=== PATIENT | female | born 1990 | race Caucasian/White ===

== ENCOUNTER 2018-02-09 16:05 | Emergency (ER) | payer OTHER ==
[~2018-02-09] VITALS: Ht 165.1 cm; Wt 70.0 kg
[~2018-02-09 16:05] MED LIST: IBUP-1986 PO; METH-360 PO
[2018-02-09] MEDS ORDERED: normal saline 1000ML IV soln IVB ONE (20:45)
[2018-02-09] MEDS ORDERED: ketorolac trometh. 30mg/ml inj. IV ONE (20:50)
[2018-02-09 21:10] LABS: BASOPHILS % (AUTO) 0.2 % (0-1); EOSINOPHILS # (AUTO) 0.1 X10'3 (0-0.9); EOSINOPHILS % (AUTO) 0.8 % (0-6); HEMATOCRIT 47.5 % (35.0-45.0); HEMOGLOBIN 15.8 g/dl (12.0-16.0); LYMPHOCYTES # (AUTO) 0.8 X10'3 (1.1-4.8); LYMPHOCYTES % (AUTO) 10.7 % (21-51); MEAN CORPUSCULAR HEMOGLOBIN 31.4 PG (27.0-31.0); MEAN CORPUSCULAR HGB CONC 33.3 % (33.0-36.5); MEAN CORPUSCULAR VOLUME 94.3 FL (78-98); MEAN PLATELET VOLUME 8.9 FL (7.4-10.4); MONOCYTES # (AUTO) 0.8 X10'3 (0-0.9); MONOCYTES % (AUTO) 11.5 % (2-12); NEUTROPHILS # (AUTO) 5.6 X10'3 (1.8-7.7); NEUTROPHILS % (AUTO) 76.8 % (42-75); PLATELET COUNT 227 X10'3 (140-440); RED BLOOD COUNT 5.03 X10'6 (4.20-5.60); RED CELL DISTRIBUTION WIDTH 13.8 % (11.5-14.5); WHITE BLOOD COUNT 7.3 X10'3 (4.5-11.0)
[2018-02-09] MEDS ORDERED: morphine 4 MG/ML inj SYRINge IV PRN (21:25)
[2018-02-09] MEDS ORDERED: morphine 4 MG/ML inj SYRINge IV ONE (21:25)
[2018-02-09] MEDS ORDERED: LORazepam 2 mg/ml vial IV ONE (21:25)
[2018-02-09 21:43] LABS: ALANINE AMINOTRANSFERASE 39 U/L (12-78); ALBUMIN/GLOBULIN RATIO 1.1 (1.1-1.5); ALKALINE PHOSPHATASE 65 IU/L (46-116); ANION GAP 13 (8-16); ASPARTATE AMINO TRANSFERASE 29 U/L (10-37); BILIRUBIN,TOTAL 0.3 MG/DL (0.1-1.0); BLOOD UREA NITROGEN 11 MG/DL (7-18); BUN/CREATININE RATIO 12.2 (6.6-38.0); C-REACTIVE PROTEIN 0.44 MG/DL (0.0-0.5); CALCIUM 9.1 MG/DL (8.5-10.1); CHLORIDE 99 MMOL/L (99-107); GLUCOSE 86 MG/DL (70-104); POTASSIUM 3.7 MMOL/L (3.5-5.1); SODIUM 136 MMOL/L (135-145); TOTAL PROTEIN 7.7 G/DL (6.4-8.2); eGFR 75 ML/MIN
[2018-02-09 21:46] LABS: ETHANOL < 0.010 GM/DL (0.0-0.010)
[2018-02-09 21:54] LABS: URINE AMPHETAMINE SCREEN NEGATIVE (Neg); URINE BARBITUATE SCREEN NEGATIVE (Neg); URINE BENZODIAZEPINES SCREEN NEGATIVE (Neg); URINE CANNABINOID SCREEN POSITIVE (Neg); URINE COCAINE SCREEN NEGATIVE (Neg); URINE METHADONE SCREEN NEGATIVE (Neg); URINE OPIATE SCREEN NEGATIVE (Neg); URINE PHENCYCLIDINE SCREEN NEGATIVE (Neg)
[2018-02-09 21:55] LABS: CLARITY,URINE CLEAR (Clear); COLOR,URINE YELLOW (Yellow); GLUCOSE, URINE NEGATIVE (Neg); KETONES,URINE NEGATIVE (Neg); LEUKOCYTE ESTERASE ,URINE NEGATIVE (Neg); NITRITES, URINE NEGATIVE (Neg); OCCULT BLOOD,URINE NEGATIVE (Neg); PROTEIN,URINE NEGATIVE (Neg); UROBILINOGEN,URINE 0.2 E.U/dL (0.2-1.0)
[2018-02-09 21:58] LABS: UA COLLECTION TYPE CLN CATCH MIDSTREAM
[2018-02-09] MEDS ORDERED: iohexol 350MG/ML 100ml bottle IV ONE (23:08)
[2018-02-10] MEDS ORDERED: NAPR-56 PO (01:28)
[2018-02-10 01:46] VITALS: BP 109/47
== END 2018-02-10 01:49 | disposition home or self-care (01) ==
LOC: ER 16:07
DX: J32.9 Chronic sinusitis, unspecified (principal); G89.29 Other chronic pain; R20.0 Anesthesia of skin; R42 Dizziness and giddiness; R51 Headache; Z91.040 Latex allergy status; Z88.5 Allergy status to narcotic agent
CPT/HCPCS: 36415; 70496; 80053; 80305; 80320; 81003; 83605; 83735; 84443; 85025; 85651; 86140; 93005; 96361; 96374; 96375; 99284; J1885; J2060; J2270; J7030; Q9967

== ENCOUNTER 2019-01-18 13:04 | Emergency (ER) | payer OTHER ==
[~2019-01-18] VITALS: Ht 167.6 cm; Wt 68.2 kg
[~2019-01-18 13:04] MED LIST changes: +LIDOcaine 1% w/EPI 1:100,000 30ml vial (MDV) ONE
[2019-01-18 13:21] VITALS: BP 124/66
== END 2019-01-18 15:30 | disposition home or self-care (01) ==
LOC: ER 13:05
DX: S01.111A Laceration without foreign body of right eyelid and periocular area, initial encounter (principal); G89.29 Other chronic pain; Z88.6 Allergy status to analgesic agent; Z91.040 Latex allergy status; Z79.899 Other long term (current) drug therapy; W22.8XXA Striking against or struck by other objects, initial encounter; Y93.89 Activity, other specified; Y92.89 Other specified places as the place of occurrence of the external cause; Y99.8 Other external cause status
CPT/HCPCS: 12011; 99283

== ENCOUNTER 2020-02-18 12:16 | Emergency (ER) | payer BC, OTHER ==
[~2020-02-18] VITALS: Ht 167.6 cm; Wt 69.1 kg
[~2020-02-18 12:16] MED LIST changes: -LIDOcaine 1% w/EPI 1:100,000 30ml vial (MDV) ONE
[2020-02-18 12:21] VITALS: BP 154/105
[2020-02-18] MEDS ORDERED: cyclobenzaprine 10mg tablet PO ONE (13:25)
[2020-02-18] MEDS ORDERED: LORazepam 1 MG tablet PO ONE (13:25)
[2020-02-18] MEDS ORDERED: orphenadrine citrate 60mg/2ml inj. IM ONE (13:25)
[2020-02-18] MEDS ORDERED: HYDR-4353 PO (14:54)
[2020-02-18] MEDS ORDERED: NAPR-56 PO (14:54)
[2020-02-18] MEDS ORDERED: CYCL-1 PO (14:54)
[2020-02-18] MEDS ORDERED: LORA-269 PO (14:54)
[2020-02-18] MEDS ORDERED: HYDROcodone/acetaminophen 10/325mg tab PO ONE (14:55)
== END 2020-02-18 15:43 | disposition home or self-care (01) ==
LOC: ER 12:16
DX: M62.838 Other muscle spasm (principal); M54.12 Radiculopathy, cervical region; G89.29 Other chronic pain; Z88.8 Allergy status to other drugs, medicaments and biological substances; Z91.048 Other nonmedicinal substance allergy status; Z79.899 Other long term (current) drug therapy
CPT/HCPCS: 72125; 96372; 99284; J2360

== ENCOUNTER 2020-03-07 14:36 | Emergency (ER) | payer BC ==
[~2020-03-07] VITALS: Ht 167.6 cm; Wt 63.4 kg
[~2020-03-07 14:36] MED LIST changes: +CYCL-1 PO; +LORA-269 PO; +NAPR-56 PO
[2020-03-07 14:51] VITALS: BP 152/101
[2020-03-07] MEDS ORDERED: LORazepam 2 mg/ml vial IM ONE (15:40)
[2020-03-07] MEDS ORDERED: ketorolac tromethamine 15mg/ml inj. IM ONE (15:40)
[2020-03-07] MEDS ORDERED: orphenadrine citrate 60mg/2ml inj. IM ONE (15:40)
[2020-03-07] MEDS ORDERED: LORazepam 1 MG tablet PO ONE (16:10)
[2020-03-07] MEDS ORDERED: ORPH100T2 PO (17:08)
[2020-03-07] MEDS ORDERED: NAPR-56 PO (17:08)
== END 2020-03-07 17:25 | disposition home or self-care (01) ==
LOC: ER 14:38
DX: M54.12 Radiculopathy, cervical region (principal); M54.2 Cervicalgia; G89.29 Other chronic pain; Z88.6 Allergy status to analgesic agent; Z91.040 Latex allergy status; Z79.899 Other long term (current) drug therapy
CPT/HCPCS: 96372; 99284; J1885; J2360